=== PATIENT | female | born 1960 | race American Indian/Alaskan Native ===

== ENCOUNTER 2017-07-26 18:09 | Emergency (ER) | payer OTHER ==
[~2017-07-26] VITALS: Ht 160 cm; Wt 112.5 kg
[~2017-07-26 18:09] MED LIST: ACETAMINOPHEN325 M1 PO; BACTRIM DS TAB1 EACH PO; CEPHALEXIN500 MG PO; CLARITIN10 M2 PO; FLUTICASONE PRO16 GM NS; IBUPROFEN600 MG PO; NORCO 5-325 TA1 EACH PO; TRAMADOL HCL50 MG PO; TRIAMCINOLONE A15 GM TOP; VITAMIN D35000 UNIT PO
[2017-07-26] MEDS ORDERED: NORCO 5-325 TA1 EACH PO (21:34)
== END 2017-07-26 22:03 | disposition home or self-care (01) ==
LOC: ED 18:09
DX: S16.1XXA Strain of muscle, fascia and tendon at neck level, initial encounter (principal); S30.1XXA Contusion of abdominal wall, initial encounter; Z79.899 Other long term (current) drug therapy; V49.49XA Driver injured in collision with other motor vehicles in traffic accident, initial encounter
CPT/HCPCS: 71260; 72125; 74177; 80053; 85025; 85610; 96374; 96375; 99284; G0480; J1885; J2405; Q9967

== ENCOUNTER 2020-11-03 07:06 | Emergency (ER) | payer OTHER ==
[~2020-11-03] VITALS: Ht 160 cm; Wt 112.6 kg
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
[2020-11-03] MEDS ORDERED: HYDROCODON-ACE1 EA10 PO (12:02)
== END 2020-11-03 12:25 | disposition home or self-care (01) ==
LOC: ED 07:06
DX: S80.02XA Contusion of left knee, initial encounter (principal); S80.01XA Contusion of right knee, initial encounter; S20.219A Contusion of unspecified front wall of thorax, initial encounter; V47.5XXA Car driver injured in collision with fixed or stationary object in traffic accident, initial encounter; Z79.899 Other long term (current) drug therapy
CPT/HCPCS: 70450; 71260; 72125; 74177; 80053; 82150; 82550; 83605; 83690; 85025; 86850; 86900; 86901; 94640; 96374; 99284-25; J1885; Q9967

== ENCOUNTER 2020-12-13 13:54 | Emergency (ER) | payer OTHER ==
[~2020-12-13] VITALS: Ht 160 cm; Wt 112.6 kg
[~2020-12-13 13:54] MED LIST changes: +HYDROCODON-ACE1 EA10 PO
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
== END 2020-12-13 15:52 | disposition home or self-care (01) ==
LOC: ED 13:54
DX: S20.211A Contusion of right front wall of thorax, initial encounter (principal); S80.12XA Contusion of left lower leg, initial encounter; V49.49XA Driver injured in collision with other motor vehicles in traffic accident, initial encounter; J45.909 Unspecified asthma, uncomplicated; Z87.891 Personal history of nicotine dependence; Z79.899 Other long term (current) drug therapy
CPT/HCPCS: 71101; 73590; 99284-25; A9270

== ENCOUNTER 2022-05-22 17:39 | Emergency (ER) | payer OTHER ==
[~2022-05-22] VITALS: Ht 160 cm; Wt 99.2 kg
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
[2022-05-22] MEDS ORDERED: HYDROCODON-ACE1 EA10 PO (20:29)
[2022-05-22] MEDS ORDERED: DOXYCYCLINE HY100 MG PO (20:29)
== END 2022-05-22 21:19 | disposition home or self-care (01) ==
LOC: ED 17:39
DX: L03.011 Cellulitis of right finger (principal); J45.909 Unspecified asthma, uncomplicated; Z87.891 Personal history of nicotine dependence
CPT/HCPCS: 10060; 99283-25; A9270

== ENCOUNTER 2023-05-26 09:25 | Day surgery (SDC) | payer OTHER ==
[2023-05-24 09:57] VITALS: BP 143/91
[~2023-05-26] VITALS: Ht 160 cm; Wt 104.0 kg
[~2023-05-26 09:25] MED LIST changes: +ALLERGY RELIEF25 MG PO; +DOXYCYCLINE HY100 MG PO; +IBUPROFEN800 MG PO; +PSYLLIUM SEED480 GM PO; +SPIRIVA18 MCG INH; +SYMBICORT 16010.2 GM INH; +VENTOLIN HFA18 GM; +VITAMIN D250 MCG PO
[2023-05-26 09:47] VITALS: BP 133/76
[2023-05-26 11:26] VITALS: BP 124/80
--- NOTE | 2023-05-26 11:39 | NUR ---
1135: PT IN DS RM 9 DISCHARGED AND DRESSED WITH DAUGHTER AT BEDSIDE WAITING FOR RIDE HOME. PT DAUGHTER STATES SHE WOULD LIKE TO WAIT TO SEE IF BROTHER WILL RESPOND. IF UNABLE TO GET AHOLD OF BROTHER IN THE NEXT HOUR, WILL TRY [facility] TRANSP[facility]. PT PROVIDED APPLESUACE, CALL LIGHT WITHIN REACH.
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
--- NOTE | 2023-05-31 16:56 | PATH ---
[facility] [address] [place], [place] [address] Signed SPECIMEN(S): A SIGMOID POLYP AT 25 CM SPECIMEN(S): B SIGMOID POLYP AT 20 CM SPECIMEN SOURCE: A. SIGMOID POLYP AT 25 CM B. SIGMOID POLYP AT 20 CM CLINICAL HISTORY: Diverticulosis, hx polyps. Post op: Internal / external hemorrhoids, diverticulosis, polyps. FINAL PATHOLOGIC DIAGNOSIS: A. Sigmoid polyp at 25 cm: - Hyperplastic polyp (one fragment). B. Sigmoid polyp at 20 cm: - Polypoid colonic mucosa with hyperplastic features and superficial epithelial erosion. - Fragments of submucosal adipose tissue (see comment). COMMENT: The submucosal adipose tissue may represent at lipoma in the appropriate clinical setting. Clinical correlation is requested. LizetVR:[facility] MICROSCOPIC EXAMINATION: Histologic sections of all submitted blocks are examined by light microscopy. These findings, together with the gross examination, support the pathologic diagnosis. GROSS DESCRIPTION: A. The specimen, labeled and designated "[place], E, colon, sigmoid polypectomy at 25 cm," is received in formalin and consists of 1 ewing-brown soft tissue fragment measuring 0.2 x 0.3 cm and submitted entirely in (A1). B. The specimen, labeled and designated "[place], E, colon, sigmoid polypectomy at 20 cm," is received in formalin and consists of 2 ewing soft tissue fragments measuring 0.3 x 0.4 cm and submitted entirely in (B1). [facility] (under the direct supervision of a pathologist) The Gross Description was prepared using a voice recognition system. The report was reviewed for accuracy; however, sound-alike word errors, addition and/or PATIENT NAME: JAEL ROJAS PATHOLOGY DATE OF : 56 REPORT #: [id number] PHYSICIAN: OZZY PATHOLOGY PCP: JAMESON GAMEZ REPORT IS CONFIDENTIAL AND NOT TO BE RELEASED WITHOUT AUTHORIZATION [facility] [address] [place] [place] [address] Signed deletions may occur. If there is any question about this report, please contact Client Services. PERFORMING LABORATORY: Technical component was performed by [facility], [address] [place] [address] (CLIA# [id number]). Professional interpretation was performed by [facility] - [facility], [address] [place] [id number] (CLIA#: [id number]). Diagnostician: Fernando Westfall MD Pathologist Electronically Signed 05/31/2023 Copies: ~ PATIENT NAME: JAEL ROJAS PATHOLOGY DATE OF : 56 REPORT #: [id number] PHYSICIAN: OZZY PATHOLOGY PCP: JAMESON GAMEZ REPORT IS CONFIDENTIAL AND NOT TO BE RELEASED WITHOUT AUTHORIZATION
== END 2023-05-26 11:35 | disposition home or self-care (01) ==
LOC: DS 09:25 → OPS 09:25
PROVIDERS: ATTEND Colon & Rectal Surgery
PROC: 0DBN8ZX Excision of Sigmoid Colon, Via Natural or Artificial Opening Endoscopic, Diagnostic (ICD-10-PCS; principal; 2023-05-26 10:00)
DX: K63.5 Polyp of colon (principal); K57.30 Diverticulosis of large intestine without perforation or abscess without bleeding; K64.0 First degree hemorrhoids; K64.4 Residual hemorrhoidal skin tags; E66.9 Obesity, unspecified; G47.33 Obstructive sleep apnea (adult) (pediatric); Z80.0 Family history of malignant neoplasm of digestive organs; Z99.89 Dependence on other enabling machines and devices
CPT/HCPCS: 00811; J2001; J2704; J7121